=== PATIENT | female | born 1980 | race Native Hawaiian/Other Pacific Islander ===

== ENCOUNTER 2021-11-06 15:29 | Outpatient (CLI) | payer OTHER | END 2021-11-06 19:04 | disposition home or self-care (01) | LOC: MAMMO 15:29 | PROVIDERS: ATTEND Nurse Practitioner Family | DX: Z12.31 Encounter for screening mammogram for malignant neoplasm of breast (principal) ==

== ENCOUNTER 2022-02-17 09:25 | Outpatient (CLI) | payer OTHER | END 2022-02-17 18:51 | disposition home or self-care (01) | LOC: US 09:25 | PROVIDERS: ATTEND Nurse Practitioner Family | DX: R10.13 Epigastric pain (principal) ==

== ENCOUNTER 2022-06-01 15:49 | Outpatient (CLI) | payer OTHER | END 2022-06-01 18:56 | disposition home or self-care (01) | LOC: US 15:49 | PROVIDERS: ATTEND Registered Nurse | DX: R93.5 Abnormal findings on diagnostic imaging of other abdominal regions, including retroperitoneum (principal); N83.201 Unspecified ovarian cyst, right side; N83.02 Follicular cyst of left ovary ==